=== PATIENT | male | born 2005 | race Two or more races ===

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

== ENCOUNTER 2023-03-18 18:15 | Emergency (ER) | payer MEDICAID ==
[~2023-03-18] VITALS: Ht 165.1 cm; Wt 113.8 kg
[~2023-03-18 18:15] MED LIST: IBUP1TAB4 PO
[2023-03-18 18:48] VITALS: BP 140/87; PULSE 71; RESP 16; O2SAT 98
== END 2023-03-18 23:48 | disposition home or self-care (01) ==
LOC: ER 18:15
DX: R10.9 Unspecified abdominal pain (principal); F12.90 Cannabis use, unspecified, uncomplicated
CPT/HCPCS: 74176